=== PATIENT | male | born 1990 | race Caucasian/White ===

== ENCOUNTER → 2020-07-31 | Emergency (ER) | payer OTHER | END | disposition left against medical advice (07) | LOC: ER 15:24 | DX: Z53.20 Procedure and treatment not carried out because of patient's decision for unspecified reasons (principal) ==

== ENCOUNTER → 2021-03-01 | Emergency (ER) | payer OTHER ==
[~2021-03-01] VITALS: Ht 177.8 cm; Wt 68.0 kg
[~2021-03-01] MED LIST: PEPCID40 MG PO; ZOFRAN8 MG PO
== END | disposition home or self-care (01) ==
LOC: ER 02:48
DX: R11.11 Vomiting without nausea (principal); F10.129 Alcohol abuse with intoxication, unspecified

== ENCOUNTER 2023-02-24 03:42 | Emergency (ER) | payer OTHER ==
[~2023-02-24] VITALS: Ht 177.8 cm; Wt 68.0 kg
[2023-02-24] MEDS ORDERED: PEPCID40 MG PO (08:19)
[2023-02-24] MEDS ORDERED: ONDANSETRON ODT4 MG PO (08:19)
== END 2023-02-24 08:31 ==
LOC: ER 03:42
DX: F10.129 Alcohol abuse with intoxication, unspecified (principal)

== ENCOUNTER 2025-09-22 07:44 | Emergency (ER) | payer OTHER ==
[~2025-09-22] VITALS: Ht 177.8 cm; Wt 72.6 kg
[~2025-09-22 07:44] MED LIST changes: +ONDANSETRON ODT4 MG PO
[2025-09-22] MEDS ORDERED: DEXAMETHASONE SODIUM PHOSPHATE 4 MG/ML VIAL ONE (08:09)
[2025-09-22] MEDS ORDERED: CEFTRIAXONE SODIUM 1,000 MG VIAL IM STA (08:09)
[2025-09-22] MEDS ORDERED: DEXAMETHASONE SODIUM PHOSPHATE 4 MG/ML VIAL IM STA (08:09)
[2025-09-22] MEDS ORDERED: CEFTRIAXONE SODIUM 1,000 MG VIAL ONE (08:10)
[2025-09-22] MEDS ORDERED: AKTOB5 ML OP (08:11)
== END 2025-09-22 10:05 | disposition home or self-care (01) ==
LOC: ER 07:45
DX: H10.89 Other conjunctivitis (principal)